=== PATIENT | female | born 1955 | race Caucasian/White ===

== ENCOUNTER → 2016-11-13 | Outpatient (CLI) | payer MEDICARE ==
[~2016-11-13] MED LIST: ALPR0.5T6 PO; AMIT10TA PO; ASPI-482 PO; CELE200C PO; CHOL5000 PO; CITA20TA9 PO; DILT240C2 PO; DOXA2TAB PO; HYDR-963 PO; LIDO30CR TP; OMEP20CA9 PO; ONDA4TAB7 PO; PROAIR HFA8.5 GM INH
--- NOTE | 2016-11-14 06:04 | PAIN ---
DATE OF SERVICE: INITIAL CONSULTATION CHIEF COMPLAINT: Right lower extremity pain. HISTORY OF PRESENT ILLNESS: This is a 60-year-old female, who presents with a history of pain since 07/07/2016, gradually increasing, not a result of any specific injury or action that she is aware of. She had pain in the right lower extremity, mostly in the posterior calf, posterior knee, radiating into the lateral calf the heel, and into the foot, but with some numbness in all of her toes from the forefoot distal with some increased pain and sensitivity on the lateral aspect and posterior aspect of the calf just from the knee down. The patient reports occasional pain radiating up into the thigh and into the hip, but only occasionally. The patient reports that mostly it is in the lower leg below the knee, into the lateral ____ thigh, lateral and posterior calf into the foot on the right side. The patient reports that it is sensitive, alternating with numbness, tingling, stabbing, sharp, constant pain, and at most times, throbbing, worse with standing and walking. The patient has been evaluated for shingles and culture was taken. She does have a rash in the similar distribution on the lateral aspect of the calf and the lateral-anterior aspect of the foot, but was seen by a catering truck operator and it was determined that this was not a shingles rash. She also saw Neurosurgery, Dr. Hebert, who had done previous lumbar hemilaminotomies at L4-5 and L5-S1 on the left side and reported that she did not need any further surgery. The patient reports that the pain has become more of a nuisance now - it is more tingling, stinging, and numbness in the leg and the foot as mentioned. The patient has had chiropractic treatment in the past, as well as doing exercise currently, has tried OxyContin and hydrocodone - hydrocodone does seem to help to a moderate extent. The patient reports no symptoms on the left lower extremity. Sensitivity mainly in the foot and the leg on the right as noted. The patient reports disability, rating 0 to 10, 10 being the worst, it is an 8 with family and home responsibilities, recreation, social activity, occupation, sexual behavior, and self-care, and 2-5 with life support activities. The patient reports that it wakes her from sleep once or twice a night because there is tingling and numbness in the foot and the lateral-posterior lower leg. The patient did have an MRI scan of her lumbar spine on 07/17/2016 showing previous laminectomy at L4-5 and L5-S1 on the left side with hemilaminectomies changes with degenerative disk disease throughout the lumbar spine, resulting in mild central spinal canal stenosis at L3-4, mild bilateral neural foraminal stenosis at L5-S1. PAST MEDICAL HISTORY: Significant for hypertension, arthritis, diverticulosis, bronchitis, previous left breast carcinoma, status post chemotherapy and radiation treatment. PREVIOUS SURGERY: Other surgeries include lumbar diskectomy and laminectomy, bladder suspension in 2005, tonsillectomy in 1987, LASIK surgery in 1995, lumpectomy in 2009, bilateral cataract extractions, meniscal tear of the left knee repaired, total knee replacement on the left in March 2015, and previous lithotripsies. CURRENT MEDICATIONS: Include ____ oxycodone, iron, vitamin D, Maxzide, Celexa, Cardura, [place] - discontinued, lidocaine topical ointment, diltiazem, alprazolam, omeprazole, Celebrex, daily baby aspirin, Zofran, ProAir, and amitriptyline. ALLERGIES: THE PATIENT IS ALLERGIC TO HYDRALAZINE AND LISINOPRIL, WHICH CAUSES ANAPHYLAXIS. FAMILY HISTORY: Significant for Alzheimer disease, coronary artery disease, and hypertension. SOCIAL HISTORY: The patient drinks alcohol occasionally - maybe once or twice a week at the most, and does not smoke. She is , lives with her spouse, and lives locally in [place], [place]. REVIEW OF SYSTEMS: The patient's review of systems is positive for those items mentioned in the history of present illness. All systems reviewed and are otherwise negative. It is complete, full and well-documented on the patient's chart. PHYSICAL EXAMINATION: VITAL SIGNS: Today, the patient's blood pressure is 153/95, pulse is 79, respirations 16, temperature 98.9 degrees Fahrenheit. Height is 5 feet 6 inches and weight is 251 pounds. GENERAL: The patient is awake, alert, oriented, and appropriate, very pleasant demeanor. HEENT: Head shows normocephalic, atraumatic. Extraocular movements are intact and symmetrical. Oral cavity: Mucous membranes are moist and pink. Dentition is intact. NECK: Shows anterior throat supple without palpable lymphadenopathy noted. Swallow reflex is symmetrical. Neck shows full rotational motion of the cervical spine without difficulty or tenderness, including extension and flexion. Right and left lateral rotation is greater than 45 degrees, closer to 90 degrees. CHEST: Shows normal on inspection. Breath sounds are clear to auscultation bilaterally. HEART: Shows S1 and S2 clear. No murmurs auscultated. ABDOMEN: Soft, obese, nontender, and nondistended. No palpable organomegaly noted. No rebound or guarding demonstrated. BACK: The patient's back shows grossly midline spine, a normal-appearing thoracic kyphosis, and some mild flattening of lumbar lordotic curvature with a small well-healed surgical scar noted in the lower lumbar distribution in the midline. Lumbar paraspinous musculature shows symmetrical on inspection with palpation and shows only very mild tenderness with palpation in the lower lumbar distribution diffusely without radiation. No tenderness over the spinous processes, sacrum, or sacroiliac regions. The patient shows good rotation and motion of the lumbar spine, both laterally as well as in extension and flexion without difficulty or pain reported - greater than 10 degrees right and left in extension and forward flexion of 45 degrees. Lower extremities showed deep tendon reflexes at 1+ in the patellar and tendocalcaneus tendons. The patient has a well-healed surgical scar over the left knee in the midline. Peripheral pulses are 2+ and palpable at the posterior tibial and dorsalis pedis pulses and popliteal pulses bilaterally. The patient does have a small erythematous rash on the anterior surface of the lateral ankle and into the superior aspect of the lateral malleolus, also some spotty patches of rash on the anterior surface of the foot going into the web between the first and second toes, and on the top of the foot, scattered as well. Also, it is present on the lateral-posterior aspect of the right calf region, nonpustular. They are erythematous, but leonela easily with good capillary refill and are not significantly tender. The patient does show some increased hyperesthesia, but not pain with light touch although, and was not painful. No allodynic findings. Motor exam shows approximately 4/5 with dorsiflexion and extension on the right foot and 5/5 on the left. No discrete foot drop however. Quadriceps and hamstring flexions are 5/5 and equal bilaterally. IMPRESSION: 1. This is a 60-year-old female with a history since 07/07/2016 of pain in the right lower extremity and to the foot, as well as numbness as well as this rash determined not to be herpes zoster. 2. History of hypertension. 3. Arthritis. 4. Previous breast cancer, in remission. 5. MRI scan of lumbar spine as noted. PLAN: Options were discussed with the patient, including conservative medical management with physical therapy, interventional techniques, and she would like to follow most with conservative course at this time. We will try Medrol Dosepak to see if this may help with the patient's symptoms. Depending on the results from this, we discussed possible peroneal nerve block versus caudal epidural steroid injection or a transforaminal injection on the right at L5-S1. The patient would like to consider these. We will try Medrol Dosepak in the meantime. The patient was given instruction as well as side effects to be aware of with the medication and will follow up in approximately 1-1/2 weeks as scheduled. MARCELO COATES MD DR: ALEXA/juventino JOB#: [id number] / [id number]
== END | disposition home or self-care (01) ==
LOC: PNCL 13:29
PROVIDERS: ATTEND Anesthesiology
DX: M79.604 Pain in right leg (principal)
CPT/HCPCS: G0463

== ENCOUNTER → 2016-11-26 | Outpatient (CLI) | payer MEDICARE ==
[~2016-11-26] MED LIST changes: +BUPIVACAINE MPF 0.25% 10 ML VIAL. ONE; +IOHEXOL 180 MG/ML 10 ML VIAL. ONE; +methylPREDNISolone ACETATE 80 MG/ML VIAL. ONE
--- NOTE | 2016-11-27 01:18 | PN ---
DATE: 11/26/2016 PROGRESS NOTE FOR PAIN CLINIC DIAGNOSES: Lumbar radiculopathy with post-lumbar laminectomy syndrome. HISTORY OF PRESENT ILLNESS: The patient is a 60-year-old female who returns for followup status post initial evaluation and Medrol Dosepak. The patient reports no significant improvement with the Medrol Dosepak, still complaining of pain in the right lower extremity mostly in the lower leg into the lateral aspect of the calf and the anterior aspect of the foot and the top of the foot on the right side only, the patient reports worse with walking and standing. It is anywhere from a 7-10 on a scale of 10. The patient reports she has been taking hydrocodone 10 mg only lasting about 3 hours. Pain is becoming more noticeable. She is also putting on lidocaine ointment on the foot and the leg itself which helps for a small period of time. The patient reports no new motor or sensory deficits, but still significant pain awakening her from sleep at night, is making it much more difficult to perform daily activities. PHYSICAL EXAMINATION: VITAL SIGNS: The patient's blood pressure is 138/71, pulse 80, respirations are 20, temperature is 98.2 degrees Fahrenheit, height is 5 feet 6 inches and weight is 255 pounds. GENERAL: The patient is awake, alert, oriented, appropriate, has a very pleasant demeanor. The patient is accompanied by her spouse. HEENT: Head shows normocephalic, atraumatic. Extraocular movements are intact and symmetrical. Oral cavity shows mucous membranes are moist and pink. Dentition is intact. NECK: Shows anterior throat supple without palpable lymphadenopathy noted. Swallow reflex is symmetrical. CHEST: Shows normal on inspection. Breath sounds clear to auscultation bilaterally. HEART: Shows S1 and S2 clear. No murmurs auscultated. ABDOMEN: Obese, soft, nontender, nondistended. No palpable organomegaly is noted. BACK: Shows spine grossly in the midline. Lumbar paraspinous musculature shows symmetrical. She has a well-healed surgical scar noted. No specific tenderness with palpation bilaterally. No tenderness over the sacrum or sacroiliac regions. The patient shows good rotational motion of the lumbar spine, both laterally as well as extension and flexion without difficulty. EXTREMITIES: Lower extremities show deep tendon reflexes, 1+ in the patellar and tendo calcaneus tendons. Motor exam is approximately 4 on a scale of 5 with right dorsiflexion and extension, 5/5 on the left. The patient does still have small erythematous area on the superior lateral aspect of the malleolus on the right side which has good capillary refill, blanches easily, non-pustular and no exudate. Options were discussed with the patient. The patient's old chart was reviewed as her current medication regimen updated. Current review of systems updated today as well. We will proceed with a right-sided L5-S1 transforaminal injection with fluoroscopic guidance. Risks were discussed including, but not limited to bleeding, infection, possibility of epidural hematoma and subsequent neurologic compromise, dural puncture, headaches, spinal cord and/or nerve damage, potential injection of vertebral arteries and permanent ischemic damage as well as side effects of steroid medications, exposure to fluoroscopy and poor results regarding pain control. The patient understands and wishes to proceed. The patient will return to clinic in approximately 2 weeks for followup, was counseled on return appointment, activity level and side effects to be aware of. DIAGNOSIS: Lumbar radiculopathy with post-lumbar laminectomy syndrome. PROCEDURE: Right-sided L5-S1 transforaminal injection using C-arm fluoroscopic guidance under sterile prep and drape using local anesthetic, 22 gauge pencil point Edwin needle with stylet, negative aspiration throughout. Medication injected is a total of 80 mg of Depo-Medrol plus 2 mL of 0.25% bupivacaine and 1.5 mL of Isovue for contrast with good spread medially into the epidural space as well as laterally along the nerve root. CONDITION AT DISCHARGE: Stable. The patient tolerated the procedure well, had no complications. MARCELO COATES MD DR: ALEXA/juventino JOB#: [id number] / [id number]
== END | disposition home or self-care (01) ==
LOC: PNCL 13:49
PROVIDERS: ATTEND Anesthesiology
DX: M54.16 Radiculopathy, lumbar region (principal); M96.1 Postlaminectomy syndrome, not elsewhere classified
CPT/HCPCS: 64483; J1040; J3490

== ENCOUNTER → 2016-12-10 | Outpatient (CLI) | payer MEDICARE ==
[~2016-12-10] MED LIST changes: -BUPIVACAINE MPF 0.25% 10 ML VIAL. ONE; +methylPREDNISolone ACETATE 40 MG/ML VIAL. ONE
--- NOTE | 2016-12-10 21:25 | PAIN ---
DATE OF SERVICE: 12/10/2016 DIAGNOSES: Lumbar radiculopathy with post-lumbar laminectomy syndrome. HISTORY OF PRESENT ILLNESS: The patient is a 61-year-old female, who returns for followup status post right-sided L5-S1 selective nerve root transforaminal injection with no improvement in her pain and in her right lower extremity, in her right foot still complains of pain is a 10 on a scale of 10 at its worst and is at least an 8 on a scale of 10, it waking her from sleep several times at night, worse with walking, standing, it is tight, shooting, cramping, stabbing, burning and tingling severe unbearable, constant and radiating in the right leg and foot. The patient reports no new motor or sensory deficits; however, no new bowel or bladder incontinence or other complaints. PHYSICAL EXAMINATION: VITAL SIGNS: The patient's blood pressure is 132/81, pulse 74, respirations are 18, temperature 98.8 degrees Fahrenheit, height is 5 feet 6 inches, weight is 252 pounds. GENERAL: The patient is awake, alert, oriented, appropriate, very pleasant demeanor. HEENT: Shows normocephalic, atraumatic. Extraocular movements are intact and symmetrical. Oral cavity shows mucous membranes moist and pink. Dentition is intact. NECK: Shows anterior throat supple without palpable lymphadenopathy noted. Swallow reflex is symmetrical. CHEST: Shows normal on inspection. Breath sounds are clear to auscultation bilaterally. HEART: Shows S1 and S2 clear. ABDOMEN: Soft, nontender, nondistended. No palpable organomegaly. No rebound or guarding demonstrated. BACK: Shows spine grossly midline. Well healed surgical scars noted in the lumbar distribution. Lumbar paraspinous musculature shows only very mildly tender with palpation diffusely in the lumbar distribution. EXTREMITIES: Lower extremities showed deep tendon reflexes at 1+/4 in the patellar and tendo calcaneus tendons. Motor exam is 4 on a scale of 5 with right dorsiflexion, extension and 5/5 on the left. Options were discussed with the patient. We will proceed with a caudal approach epidural steroid injection today with fluoroscopic guidance. Risks were then discussed including, but not limited to bleeding, infection, possibility of epidural hematoma, subsequent neurologic compromise, dural puncture, headaches, spinal cord and/or nerve damage, side effects of steroid medication and poor results regarding pain control. The patient understands and wishes to proceed. The patient will return to clinic in approximately 2 weeks for followup, was counseled on return appointment, activity level and side effects to be aware of. The patient called the clinic in approximately 2 days. If not significantly improved, he would like to make arrangements to follow up with her neurosurgeon. We will make these arrangements for her if necessary. DIAGNOSES: Lumbar radiculopathy with post-lumbar laminectomy syndrome. PROCEDURE: Caudal approach epidural steroid injection using the C-arm fluoroscopic guidance under sterile prep and drape using local anesthetic. MEDICATIONS INJECTED: Depo-Medrol 120 mg plus 10 mL of preservative-free normal saline and 2 mL of Isovue for contrast. CONDITION AT DISCHARGE: Stable. The patient tolerated procedure well, had no complications. MARCELO COATES MD DR: ALEXA/juventino JOB#: [id number] / [id number]
== END | disposition home or self-care (01) ==
LOC: PNCL 10:07
PROVIDERS: ATTEND Anesthesiology
DX: M54.16 Radiculopathy, lumbar region (principal); M96.1 Postlaminectomy syndrome, not elsewhere classified
CPT/HCPCS: 62323; J1030; J1040

== ENCOUNTER → 2017-01-16 | Outpatient (CLI) | payer MEDICARE ==
[~2017-01-16] MED LIST changes: +GADOBUTROL 10 MMOL/10 ML VIAL IV ONE; -IOHEXOL 180 MG/ML 10 ML VIAL. ONE; -methylPREDNISolone ACETATE 40 MG/ML VIAL. ONE; -methylPREDNISolone ACETATE 80 MG/ML VIAL. ONE
--- NOTE | 2017-01-16 15:56 | KCIC ---
MR LUMBAR SPINE WITH CONTRAST HISTORY: Lumbar radiculopathy worse on the right COMPARISON: MRI lumbar spine from 07/17/2016 Technique: Sagittal T2, sagittal STIR, and sagittal T1-weighted images were obtained. Additional axial T1 and T2 weighted imaging was also performed. Sagittal and axial T1-weighted images were obtained after the administration of gadolinium based intravenous contrast material FINDINGS: There is grade 1 degenerative anterolisthesis of L5 on S1. No compression fracture or deformity. The conus terminates normally at the level of L1. Overall bone marrow signal is within normal limits apart from a type II degenerative endplate changes at L5-S1. Visualized intra-abdominal contents shows no acute abnormality. L5-S1 there is moderate bilateral facet arthropathy worse in the right. There is grade 1 degenerative anterolisthesis and disc height loss. There is also a small broad-based disc protrusion. Combination of these findings results in moderate bilateral foraminal stenosis worse on the right. Correlate for L5 radiculopathy symptoms presumably worse in the right. At L4-L5 there is mild bilateral facet arthropathy but no high-grade central spinal or neural foraminal stenosis. At L3-L4 there is a broad-based disc osteophyte complex and bilateral facet arthropathy. This causes moderate left foraminal stenosis. Correlate for left L3 radiculopathy. At L2-L3 there is no spinal stenosis. At L1-L2 there is no spinal stenosis. IMPRESSION: There is moderate bilateral foraminal stenosis at L5-S1 secondary to facet arthropathy with grade 1 degenerative anterolisthesis. Correlate for right. Left L5 radiculopathy symptoms. At L3-L4 there is moderate left foraminal stenosis from osteophytic encroachment of the foramen. Other less severe degenerative changes per level as above. Electronically signed by: Jona Solano MD (01/16/2017 3:53 PM)
== END | disposition home or self-care (01) ==
LOC: KCIC MRI 14:35
PROVIDERS: ATTEND Neurological Surgery
DX: M48.07 Spinal stenosis, lumbosacral region (principal); M51.16 Intervertebral disc disorders with radiculopathy, lumbar region; M12.88 Other specific arthropathies, not elsewhere classified, other specified site; M53.86 Other specified dorsopathies, lumbar region; M25.78 Osteophyte, vertebrae
CPT/HCPCS: 72158; A9585